=== PATIENT | male | born 1955 | race African-American/Black ===

== ENCOUNTER 2022-07-23 08:30 | Outpatient (CLI) | payer BC ==
[2022-07-23] MEDS ORDERED: Magnevist 469MG/ML 20 ML VIAL ONE (14:29)
== END 2022-07-23 08:31 | disposition home or self-care (01) ==
LOC: CSHMRI 08:30
PROVIDERS: ATTEND Urology
DX: R97.20 Elevated prostate specific antigen [PSA] (principal)
CPT/HCPCS: 72197; 82565; A9579